=== PATIENT | female | born 1975 | race African-American/Black ===

== ENCOUNTER 2018-10-14 03:12 | Emergency (ER) | payer SELFPAY ==
[~2018-10-14] VITALS: Ht 165.1 cm; Wt 59.0 kg
[2018-10-14 03:26] LABS: BILIRUBIN,URINE NEGATIVE (NEG); CLARITY,URINE CLEAR; COLOR,URINE YELLOW; NITRITE,URINE NEGATIVE (NEG); PH,URINE 6.5; PROTEIN,URINE NEGATIVE (NEG-TRACE); UROBILINOGEN,URINE 0.2 mg/dL (0.2 mg/dL)
[2018-10-14 03:32] LABS: SQUAMOUS EPITHELIAL CELL,UR MOD /LPF
[2018-10-14 03:33] LABS: BACTERIA,URINE 0 /HPF (0-FEW)
[2018-10-14] MEDS ORDERED: KETOROLAC 30 MG/ML VIAL. IM ONE (04:30)
[2018-10-14] MEDS ORDERED: AZITHROMYCIN 250 MG TABLET. PO ONE (04:30)
[2018-10-14] MEDS ORDERED: cefTRIAXone IM 250 MG VIAL IM ONE (04:30)
--- NOTE | 2018-10-14 04:52 | RAD ---
Transabdominal and transvaginal ultrasound the pelvis. HISTORY: Right adnexal pain Transabdominal ultrasound was performed. The bladder was not optimally distended. Ovaries were not identified. There is retroflexion of the uterus. Transvaginal imaging was performed for further evaluation. The endometrium is mildly prominent measuring 1.2 cm. The uterus is heterogeneous. There is a prominent mass on the uterus measuring 5 x 4.6 cm suggesting a large uterine leiomyoma. Right ovary was normal measuring 2.6 x 2.2 x 2 cm. There is a small follicle the right ovary. There is flow in the right ovary with color imaging and Doppler. Left ovary was normal measuring 1 x 2.9 x 1.3 cm. There is a small follicle in the left ovary. There is flow in the left ovary with color imaging and Doppler. IMPRESSION: 1. Complex uterine mass suggesting a prominent uterine leiomyoma. 2. Normal ovaries. Electronically signed by: Homer Elkins MD (10/14/2018 4:49 AM) [facility]
[2018-10-14] MEDS ORDERED: ACET-704 PO (04:54)
--- NOTE | 2018-10-14 04:54 | PHYS DOC ---
Past Medical History Past Medical History: Hypertension Past Surgical History: Alcohol Use: Occasionally Drug Use: Marijuana Adult General Chief Complaint Chief Complaint: PELVIC PAIN HPI HPI Patient is a 43 year old [f__sex] who presents with [] Review of Systems Review of Systems Constitutional: Denies fever or chills [] Eyes: Denies change in visual acuity, redness, or eye pain [] HENT: Denies nasal congestion or sore throat [] Respiratory: Denies cough or shortness of breath [] Cardiovascular: No additional information not addressed in HPI [] GI: Denies abdominal pain, nausea, vomiting, bloody stools or diarrhea [] : Denies dysuria or hematuria [] Musculoskeletal: Denies back pain or joint pain [] Integument: Denies rash or skin lesions [] Neurologic: Denies headache, focal weakness or sensory changes [] Endocrine: Denies polyuria or polydipsia [] All other systems were reviewed and found to be within normal limits, except as documented in this note. Current Medications Current Medications Current Medications Medications (Trade) Dose Ordered Sig/Karuna Start Time Stop Time Status Last Admin Dose Admin Azithromycin (Zithromax) 1,000 mg 1X ONCE 10/14/18 04:30 10/14/18 04:31 DC 10/14/18 03:58 1,000 MG Ceftriaxone Sodium (Rocephin Im) 250 mg 1X ONCE 10/14/18 04:30 10/14/18 04:31 DC 10/14/18 03:58 250 MG Ketorolac Tromethamine (Toradol 30mg Vial) 30 mg 1X ONCE 10/14/18 04:30 10/14/18 04:31 DC 10/14/18 03:58 30 MG Allergies Allergies Allergies Coded Allergies Type Severity Reaction Last Updated Verified morphine Allergy Intermediate 10/14/18 Yes Physical Exam Physical Exam Constitutional: Well developed, well nourished, no acute distress, non-toxic appearance. [] HENT: Normocephalic, atraumatic, bilateral external ears normal, oropharynx moist, no oral exudates, nose normal. [] Eyes: PERRLA, EOMI, conjunctiva normal, no discharge. [] Neck: Normal range of motion, no tenderness, supple, no stridor. [] Cardiovascular:Heart rate regular rhythm, no murmur [] Lungs & Thorax: Bilateral breath sounds clear to auscultation [] Abdomen: Bowel sounds normal, soft, no tenderness, no masses, no pulsatile masses. [] Skin: Warm, dry, no erythema, no rash. [] Back: No tenderness, no CVA tenderness. [] Extremities: No tenderness, no cyanosis, no clubbing, ROM intact, no edema. [] Neurologic: Alert and oriented X 3, normal motor function, normal sensory function, no focal deficits noted. [] Psychologic: Affect normal, judgement normal, mood normal. [] Current Patient Data Vital Signs Vital Signs Date Time Temp Pulse Resp B/P (MAP) Pulse Ox O2 Delivery O2 Flow Rate FiO2 10/14/18 03:23 98.2 97 16 168/97 (120) 97 Room Air 98.2 Lab Values Laboratory Tests Test 10/14/18 03:20 10/14/18 03:21 Urine Collection Type Unknown Urine Color Yellow Urine Clarity Clear Urine pH 6.5 Urine Specific [place] 1.020 Urine Protein Negative mg/dL (NEG-TRACE) Urine Glucose (UA) Negative mg/dL (NEG) Urine Ketones (Stick) Negative mg/dL (NEG) Urine Blood Negative (NEG) Urine Nitrite Negative (NEG) Urine Bilirubin Negative (NEG) Urine Urobilinogen Dipstick 0.2 mg/dL (0.2 mg/dL) Urine Leukocyte Esterase Negative (NEG) Urine RBC 3-5 /HPF (0-2) Urine WBC 1-4 /HPF (0-4) Urine Squamous Epithelial Cells Mod /LPF Urine Bacteria 0 /HPF (0-FEW) Urine Mucus Slight /LPF POC Urine HCG, Qualitative Hcg negative (Negative) Microbiology 10/14/18 Wet Prep - Final, Complete EKG EKG [] Radiology/Procedures Radiology/Procedures [] Course & Med Decision Making Course & Med Decision Making Pertinent Labs and Imaging studies reviewed. (See chart for details) [] Dragon Disclaimer Dragon Disclaimer This electronic medical record was generated, in whole or in part, using a voice recognition dictation system. Departure Departure Impression: Primary Impression: Pelvic pain Additional Impression: Uterine mass Disposition: 01 HOME, SELF-CARE Condition: STABLE Referrals: NO PCP (PCP) HALLE CLARK MD Patient Instructions: Pelvic Pain, Female, [id number], Uterine Fibroid, [id number] Additional Instructions: Your ultrasound found a "uterine mass". This most likely is a fibroid but needs to be further evaluated by your doctor and/or a RATE SUPERVISOR specialist. Scripts Acetaminophen With Codeine (TYLENOL WITH CODEINE #3 TABLET) 1 Each Tablet 1 TAB PO PRN Q6HRS PRN for PAIN, #10 TAB Prov: AMIRAH KISER DO 10/14/18 Problem Qualifiers AMIRAH KISER DO Oct 14, 2018 04:54
[2018-10-14 05:00] VITALS: BP 150/89
[2018-10-17 00:07] LABS: GC PROBE Negative (Negative)
== END 2018-10-14 05:06 | disposition home or self-care (01) ==
LOC: ER 03:12
DX: N85.8 Other specified noninflammatory disorders of uterus (principal); R10.2 Pelvic and perineal pain; I10 Essential (primary) hypertension; Z98.890 Other specified postprocedural states; Z88.5 Allergy status to narcotic agent
CPT/HCPCS: 76830; 76856; 81001; 81025; 87491; 87591; 96372; 99285; J0696; J1885; Q0111; Q0144

== ENCOUNTER 2018-10-16 15:44 | Emergency (ER) | payer SELFPAY ==
[~2018-10-16] VITALS: Ht 162.6 cm; Wt 66.2 kg
[~2018-10-16 15:44] MED LIST: ACET-704 PO
[2018-10-16] MEDS ORDERED: fentaNYL PF VIAL 100 MCG/2 ML VIAL IM STA (16:55)
--- NOTE | 2018-10-16 16:58 | PHYS DOC ---
Past Medical History Past Medical History: Hypertension (AMIRAH GODINEZ APRN) Past Surgical History: (AMIRAH GODINEZ APRN) Alcohol Use: Occasionally Drug Use: Marijuana (AMIRAH GODINEZ APRN) Adult General Chief Complaint Chief Complaint: ABDOMINAL PAIN HPI HPI Patient is a 43 year old female that presents to the ER with right lower quadrant abdominal pain has been ongoing for several days. Patient states however that he got worse several days ago but is been coming and going last year. She states she was seen here on Sunday and an ultrasound performed and they found a uterine mass but she does not a primary care doctor as she just moved here. Her pain is 8/10 and sharp in severity. (AMIRAH GODINEZ APRN) Review of Systems Review of Systems Constitutional: Denies fever or chills [] Eyes: Denies change in visual acuity, redness, or eye pain [] HENT: Denies nasal congestion or sore throat [] Respiratory: Denies cough or shortness of breath [] Cardiovascular: No additional information not addressed in HPI [] GI: Reports abdominal pain, denies nausea, vomiting, bloody stools or diarrhea [] : Denies dysuria or hematuria [] Musculoskeletal: Denies back pain or joint pain [] Integument: Denies rash or skin lesions [] Neurologic: Denies headache, focal weakness or sensory changes [] Endocrine: Denies polyuria or polydipsia [] Complete systems were reviewed and found to be within normal limits, except as documented in this note. (AMIRAH GODINEZ APRN) Current Medications Current Medications Current Medications Medications (Trade) Dose Ordered Sig/Karuna Start Time Stop Time Status Last Admin Dose Admin Fentanyl Citrate (Fentanyl 2ml Vial) 100 mcg 1X STAT 10/16/18 16:55 10/16/18 16:56 DC 10/16/18 17:21 100 MCG (AMIRAH KISER DO) Allergies Allergies Allergies Coded Allergies Type Severity Reaction Last Updated Verified morphine Allergy Intermediate 10/14/18 Yes (AMIRAH KISER DO) Physical Exam Physical Exam Constitutional: Well developed, well nourished, no acute distress, non-toxic appearance. [] HENT: Normocephalic, atraumatic, bilateral external ears normal, oropharynx moist, no oral exudates, nose normal. [] Eyes: PERRLA, EOMI, conjunctiva normal, no discharge. [] Neck: Normal range of motion, no tenderness, supple, no stridor. [] Cardiovascular:Heart rate regular rhythm, no murmur [] Lungs & Thorax: Bilateral breath sounds clear to auscultation [] Abdomen: Bowel sounds normal, soft, Right lower pelvic tenderness, no masses, no pulsatile masses. [] Skin: Warm, dry, no erythema, no rash. [] Back: No tenderness, no CVA tenderness. [] Extremities: No tenderness, no cyanosis, no clubbing, ROM intact, no edema. [] Neurologic: Alert and oriented X 3, normal motor function, normal sensory function, no focal deficits noted. [] Psychologic: Affect normal, judgement normal, mood normal. [] (AMIRAH GODINEZ APRN) Current Patient Data Vital Signs Vital Signs Date Time Temp Pulse Resp B/P (MAP) Pulse Ox O2 Delivery O2 Flow Rate FiO2 10/16/18 17:33 71 14 165/86 (112) 99 Room Air 10/16/18 16:30 98.2 98.2 (AMIRAH KISER DO) Lab Values Laboratory Tests Test 10/16/18 16:39 POC Urine HCG, Qualitative Hcg negative (Negative) (AMIRAH KISER DO) EKG EKG [] (AMIRAH GODINEZ APRN) Radiology/Procedures Radiology/Procedures [][facility] [address] [place] [address] IMAGING REPORT Signed PATIENT: KAIN RODRIGUEZ ACCOUNT: [id number] : 1975 LOCATION: ER AGE: 43 SEX: F EXAM STATUS: REG ER ORD. PHYSICIAN: AMIRAH KISER DO REASON: Right adnexal pain PROCEDURE: PELVIS W/TV Transabdominal and transvaginal ultrasound the pelvis. HISTORY: Right adnexal pain Transabdominal ultrasound was performed. The bladder was not optimally distended. Ovaries were not identified. There is retroflexion of the uterus. Transvaginal imaging was performed for further evaluation. The endometrium is mildly prominent measuring 1.2 cm. The uterus is heterogeneous. There is a prominent mass on the uterus measuring 5 x 4.6 cm suggesting a large uterine leiomyoma. Right ovary was normal measuring 2.6 x 2.2 x 2 cm. There is a small follicle the right ovary. There is flow in the right ovary with color imaging and Doppler. Left ovary was normal measuring 1 x 2.9 x 1.3 cm. There is a small follicle in the left ovary. There is flow in the left ovary with color imaging and Doppler. IMPRESSION: 1. Complex uterine mass suggesting a prominent uterine leiomyoma. 2. Normal ovaries. Electronically signed by: Homer Elkins MD (10/14/2018 4:49 AM) [facility] DICTATED and SIGNED BY: HOMER ELKINS MD DATE: 10/14/18 0449 (AMIRAH GODINEZ APRN) Course & Med Decision Making Course & Med Decision Making Pertinent Labs and Imaging studies reviewed. (See chart for details) Will give IM Fentanyl. Looked over visit from Sunday and the ultrasound. 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 Will refer to Dr. Hoffman and d/c home. (AMIRAH GODINEZ APRN) Dragon Disclaimer Dragon Disclaimer This electronic medical record was generated, in whole or in part, using a voice recognition dictation system. (AMIRAH GODINEZ APRN) Departure Departure Impression: Primary Impression: Abdominal pain Disposition: HOME, SELF-CARE Condition: STABLE Referrals: NO PCP (PCP) HALLE CLARK MD Patient Instructions: Uterine Fibroid, [id number] Additional Instructions: Thank you for visiting [facility]. We appreciate you trusting us with your care. If any additional problems come up don't hesitate to return to visit us. Please follow up with your primary care provider so they can plan additional care if needed and know about the problem that you had. If symptoms worsen come back to the Emergency Department. Any concerning symptoms that start such as chest pain, shortness of air, weakness or numbness on one side of the body, running high fevers or any other concerning symptoms return to the ER. Attending Signature Attending Signature I have reviewed the PA/KITCHEN STEWARD/STEWARDESS's note and plan of care. I was available for consultation as needed during the patient's visit in the emergency department. I agree with the clinical impression, plan, and disposition. (AMIRAH KISER DO) Problem Qualifiers Primary Impression: Abdominal pain Abdominal location: right lower quadrant Qualified Codes: R10.31 - Right lower quadrant pain AMIRAH GODINEZ APRN Oct 16, 2018 16:58 AMIRAH KISER DO Oct 17, 2018 12:28
[2018-10-16 17:33] VITALS: BP 165/86
== END 2018-10-16 17:42 | disposition home or self-care (01) ==
LOC: ER 15:44
DX: R10.31 Right lower quadrant pain (principal); I10 Essential (primary) hypertension; Z88.5 Allergy status to narcotic agent
CPT/HCPCS: 81025; 96372; 99283; J3010

== ENCOUNTER 2018-12-02 14:41 | Emergency (ER) | payer SELFPAY ==
[~2018-12-02] VITALS: Ht 162.6 cm; Wt 66.2 kg
[2018-12-02 14:59] VITALS: BP 156/76
[2018-12-02] MEDS ORDERED: NAPROXEN 500 MG TABLET PO STA (15:25)
[2018-12-02] MEDS ORDERED: DIPHTH,PERTUSS(ACELL),TET TOX 0.5 ML DISP.SYRIN. VAX IM ONE (15:30)
[2018-12-02] MEDS ORDERED: NEOMY/BACITR/POLYMYXIN OINT PACKET. TP ONE (15:30)
[2018-12-02] MEDS ORDERED: FLUORESCEIN OPHTH TEST STRIP. OD ONE (15:45)
[2018-12-02] MEDS ORDERED: TETRACAINE 0.5% OPHTH SOLUTION 4ML BOTTLE. OD ONE (15:45)
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
[2018-12-02] MEDS ORDERED: NAPR-514 PO (17:26)
[2018-12-02] MEDS ORDERED: CYCL10TA2 PO (17:26)
== END 2018-12-02 17:37 | disposition home or self-care (01) ==
LOC: ER 14:41
DX: S16.1XXA Strain of muscle, fascia and tendon at neck level, initial encounter (principal); S00.11XA Contusion of right eyelid and periocular area, initial encounter; S60.221A Contusion of right hand, initial encounter; H11.31 Conjunctival hemorrhage, right eye; M25.531 Pain in right wrist; S09.8XXA Other specified injuries of head, initial encounter; R51 Headache; I10 Essential (primary) hypertension; Z88.5 Allergy status to narcotic agent; Y08.89XA Assault by other specified means, initial encounter; Y93.89 Activity, other specified; Y92.89 Other specified places as the place of occurrence of the external cause; Y99.8 Other external cause status
CPT/HCPCS: 70450; 70480; 72125; 73110; 73130; 90471; 90715; 99284-25